=== PATIENT | male | born 1985 | race Hispanic/Latino ===

== ENCOUNTER 2019-12-25 21:24 | Emergency (ER) | payer SELFPAY ==
[2019-12-25] MEDS ORDERED: Ketorolac Tromethamine 30 MG/ML VIAL ONE (22:22)
[2019-12-25] MEDS ORDERED: Fentanyl 100 MCG/2 ML VIAL ONE (22:23)
[2019-12-25] MEDS ORDERED: Lorazepam 2 MG/ML VIAL ONE (23:04)
--- NOTE | 2019-12-25 23:53 | RAD ---
Exam: XR Humerus Lt 2 View STANDARD HISTORY: Injury to left arm after a fall. Pain left arm. COMPARISON: None FINDINGS: There is a transverse fracture involving the middle one third left humeral diaphysis with lateral ang ulation of the fracture fragments. The distal fracture fragment is displaced medially by one half shaft width. No additional fracture seen, and there is no dislocation. There is a small rounded lucency seen at the medial aspect distal left arm near the level of the elbo w which could represent artifact or focus of subcutaneous gas secondary to laceration. IMPRESSION: 1. Angulated and slightly displaced fracture middle one third left humeral diaphysis. 2. Rounded lucency overlying the subcutaneous soft tissues distal left arm. This may be artifactual. Subcutaneous gas related to laceration cannot be entirely excluded. Foreign body while a possibility is felt less likely..
== END 2019-12-25 23:09 | disposition home or self-care (01) ==
LOC: ERS 21:24
DX: S42.322A Displaced transverse fracture of shaft of humerus, left arm, initial encounter for closed fracture (principal); W13.2XXA Fall from, out of or through roof, initial encounter
CPT/HCPCS: 96372; J1885; J2060; J3010

== ENCOUNTER 2023-04-12 14:07 | Emergency (ER) | payer SELFPAY | END 2023-04-12 17:15 | disposition home or self-care (01) | LOC: ERS 14:07 | DX: S52.041A Displaced fracture of coronoid process of right ulna, initial encounter for closed fracture (principal); W13.0XXA Fall from, out of or through balcony, initial encounter | CPT/HCPCS: 29105 ==